=== PATIENT | female | born 1990 | race Caucasian/White ===

== ENCOUNTER 2018-06-12 07:24 | Emergency (ER) | payer BC ==
[~2018-06-12] VITALS: Ht 162.6 cm; Wt 56.8 kg
[2018-06-12 07:31] VITALS: Ht 162.6 cm; Wt 56.8 kg
[2018-06-12] MEDS ORDERED: THEREMS-M1 TAB PO (07:34)
[2018-06-12] MEDS ORDERED: [UNRECOGNIZED DRUG - OTHER] (07:35)
[2018-06-12 08:15] LABS: APPEARANCE CLEAR (CLEAR); BILIRUBIN NEGATIVE (NEGATIVE); COLOR YELLOW (YELLOW); GLUCOSE 100 mg/dL (NEGATIVE); KETONE NEGATIVE (NEGATIVE); NITRITE NEGATIVE (NEGATIVE); PROTEIN NEGATIVE (NEGATIVE); SPECIFIC GRAVITY 1.015 (1.005-1.020); UROBILINOGEN NORMAL (NORMAL)
[2018-06-12 08:16] LABS: BACTERIA FEW /hpf (NONE SEEN); EPITHELIAL CELLS 0-5 /hpf (0-5); WHITE CELLS - URINE 0-5 /hpf (0-5)
[2018-06-12 08:45] LABS: BASOPHILS 0.6 % (0-2); EOSINOPHILS 2.4 % (0-7); HEMOGLOBIN 12.8 g/dL (12-16); IMMATURE GRANULOCYTES 0.3 % (0-5); LYMPHOCYTES 15.9 % (15-50); MCH 28.5 pg (26.0-34.0); MCHC 32.8 g/dL (31.0-37.0); MCV 86.9 fL (80.0-100.0); MEAN PLATELET VOLUME 10.2 fL (7.4-10.4); MONOCYTES 10.4 % (2-11); NEUTROPHILS 70.4 % (40-80); PLATELET COUNT 261 10x3/uL (130-400); RBC 4.49 10x6/uL (4.00-5.40); RDW 13.2 % (11.5-14.5); WBC 7.9 10x3/uL (4.8-10.8)
[2018-06-12 09:00] LABS: ALBUMIN 3.3 g/dL (3.4-5.0); ALKALINE PHOSPHATASE 60 U/L (46-116); ALT (SGPT) 41 U/L (10-68); BILIRUBIN - TOTAL 0.23 mg/dL (0.2-1.3); CALC OSMOLALITY 274 mosm/kg (275-300); CALCIUM 8.5 mg/dL (8.5-10.1); CARBON DIOXIDE 25.8 mmol/L (21.0-32.0); CHLORIDE - SERUM 104 mmol/L (98-107); CREATININE - SERUM 0.8 mg/dL (0.6-1.3); GLUCOSE 81 mg/dL (74-106); POTASSIUM - SERUM 4.3 mmol/L (3.5-5.1); PROTEIN - SERUM 7.3 g/dL (6.4-8.2); SODIUM 139 mmol/L (136-145); UREA NITROGEN 7 mg/dL (7-18); eGFR NON AFRICAN AMERICAN 90 mL/min (90-120)
[2018-06-12] MEDS ORDERED: ZOFRAN ODT4 MG/UDTAB PO (09:31)
[2018-06-12 10:01] VITALS: BP 103/65
== END 2018-06-12 10:00 | disposition home or self-care (01) ==
LOC: D.ER 07:24
PROVIDERS: Emergency Medicine
DX: R20.2 Paresthesia of skin (principal); B34.9 Viral infection, unspecified

== ENCOUNTER 2018-06-12 19:36 | Emergency (ER) | payer BC ==
[~2018-06-12] VITALS: Ht 162.6 cm; Wt 56.8 kg
[~2018-06-12 19:36] MED LIST: THEREMS-M1 TAB PO; ZOFRAN ODT4 MG/UDTAB PO; [UNRECOGNIZED DRUG - OTHER]
[2018-06-12 19:40] VITALS: Ht 162.6 cm; Wt 56.8 kg
[2018-06-13 01:26] VITALS: BP 123/73
== END 2018-06-13 01:26 | disposition home or self-care (01) ==
LOC: D.ER 19:36
DX: G43.401 Hemiplegic migraine, not intractable, with status migrainosus (principal); R20.2 Paresthesia of skin